=== PATIENT | female | born 1970 | race Caucasian/White ===

== ENCOUNTER → 2017-05-24 | Outpatient (CLI) | payer BC ==
[2017-05-24 11:05] LABS: Basophils % (A) 1 %; CH 29.8; Eosinophils % (A) 1 %; HCT 42.3 % (34.0-46.0); HDW 2.51; HGB 13.9 gm/dL (11.4-16.0); Luc # (Auto) 0.07; Luc % (Auto) 1; Lymphocytes # (A) 1.3 k/uL (1.0-4.8); Lymphocytes % (A) 26 %; MCH 29.8 pg (25.0-35.0); MCHC 32.8 g/dL (31.0-37.0); MCV 90.9 fL (80.0-100.0); Mean Platelet Volume 7.3; Monocytes # (A) 0.2 k/uL (0-1.0); Monocytes % (A) 4 %; Neutrophils # (A) 3.5 k/uL (1.3-7.7); Neutrophils % (A) 67 %; RBC 4.66 m/uL (3.80-5.40); RDW 13.3 % (11.5-15.5); WBC 5.2 k/uL (3.8-10.6); WBC (Perox) 5.05
[2017-05-24 11:24] LABS: ALT 38 U/L (9-52); AST 27 U/L (14-36); Alkaline Phosphatase 85 U/L (38-126); Amylase 50 U/L (30-110); Anion Gap 12 mmol/L; Blood Urea Nitrogen 13 mg/dL (7-17); Calcium 9.7 mg/dL (8.4-10.2); Carbon Dioxide 27 mmol/L (22-30); Chloride 102 mmol/L (98-107); Cholesterol 189 mg/dL (<200); Glucose 100 mg/dL (74-99); HDL Cholesterol 66 mg/dL (40-60); Non-African American GFR(MDRD) >60 (>60 ml/min/1.73 sqM); Potassium 4.2 mmol/L (3.5-5.1); Sodium 141 mmol/L (137-145); Total Bilirubin 0.7 mg/dL (0.2-1.3); Total Protein 7.3 g/dL (6.3-8.2)
[2017-05-24 17:49] LABS: Gliadin AB IgA, Deaminated NEGATIVE (NEGATIVE); Gliadin AB IgG, Deaminated NEGATIVE (NEGATIVE); Gliadin AB IgG, Unit <0.4 U/mL; Tis Transglutaminase IgA Unit <0.5 AI; Tis Transglutaminase IgG Unit <0.8 U/mL
== END | disposition home or self-care (01) ==
LOC: LABWHC1 10:35
PROVIDERS: ATTEND Family Medicine
DX: Z00.00 Encounter for general adult medical examination without abnormal findings (principal); K58.0 Irritable bowel syndrome with diarrhea
CPT/HCPCS: 36415; 80053; 80061; 82150; 82306; 83036; 83516; 83690; 84443; 85025; 87086

== ENCOUNTER → 2018-12-19 | Outpatient (CLI) | payer BC ==
[2018-12-19 12:24] LABS: HCT 41.3 % (34.0-46.0); HGB 13.6 gm/dL (11.4-16.0); MCH 30.1 pg (25.0-35.0); MCHC 32.9 g/dL (31.0-37.0); MCV 91.4 fL (80.0-100.0); Mean Platelet Volume 7.1; Platelet Count 240 k/uL (150-450); RBC 4.53 m/uL (3.80-5.40); RDW 13.8 % (11.5-15.5); WBC 4.3 k/uL (3.8-10.6)
[2018-12-19 13:12] LABS: Appearance,Urine Clear (Clear); Bacteria,Urine Rare /hpf; Bilirubin,Urine Negative (Negative); Blood,Urine Negative (Negative); Color,Urine Yellow; Glucose,Urine (UA) Negative (Negative); Ketones,Urine Negative (Negative); Leukocyte Esterase,Urine Moderate (Negative); Mucus,Urine Occasional /hpf; Nitrite,Urine Negative (Negative); PH, Urine 5.5 (5.0-8.0); Protein,Urine Negative (Negative); RBC,Urine 2 /hpf (0-5); Specific Gravity,Urine 1.015 (1.001-1.035); Squamous Epithelial Cell,Urine 2 /hpf (0-4); Urobilinogen,Urine <2.0 mg/dL (<2.0); WBC,Urine 2 /hpf (0-5)
[2018-12-19 17:06] LABS: African American GFR (CKD) 102.5 (60.0-200.0); Albumin 4.6 g/dL (3.80-4.90); Albumin/Globulin Ratio 2.09 (1.60-3.17); Anion Gap 8.8 mmol/L (4.00-12.00); BUN/Creat Ratio 13.75 Ratio (12.00-20.00); Calcium 9.8 mg/dL (8.7-10.3); Carbon Dioxide 25.2 mmol/L (21.6-31.8); Globulin 2.2 g/dL (1.6-3.3); LDL Cholesterol,Calculated 134.2 mg/dL (0.0-131.0); Potassium 4.3 mmol/L (3.5-5.5); Total Bilirubin 0.8 mg/dL (0.3-1.2); Total Protein 6.8 g/dL (6.2-8.2); VLDL Calculation 15.8 mg/dL (5.00-40.00)
[2018-12-19 22:44] LABS: Hemoglobin A1C 4.9 % (4.0-6.0)
== END | disposition home or self-care (01) ==
LOC: LABWHC1 11:52
PROVIDERS: ATTEND Family Medicine
DX: Z00.00 Encounter for general adult medical examination without abnormal findings (principal); E66.3 Overweight
CPT/HCPCS: 36415; 80053; 80061; 81001; 82306; 83036; 84443; 85027

== ENCOUNTER → 2019-01-03 | Outpatient (CLI) | payer BC ==
[2019-01-03 10:50] LABS: Appearance,Urine Clear (Clear); Bilirubin,Urine Negative (Negative); Blood,Urine Negative (Negative); Color,Urine Yellow; Glucose,Urine (UA) Negative (Negative); Ketones,Urine Negative (Negative); Leukocyte Esterase,Urine Negative (Negative); Nitrite,Urine Negative (Negative); PH, Urine 5.5 (5.0-8.0); Protein,Urine Negative (Negative); Specific Gravity,Urine 1.024 (1.001-1.035); Urobilinogen,Urine <2.0 mg/dL (<2.0)
== END | disposition home or self-care (01) ==
LOC: LABWHC1 08:49
PROVIDERS: ATTEND Family Medicine
DX: R30.0 Dysuria (principal)
CPT/HCPCS: 81003; 87086

== ENCOUNTER → 2019-03-14 | Outpatient (CLI) | payer MEDICAID ==
--- NOTE | 2019-03-14 11:24 | XR ---
EXAMINATION TYPE: XR chest 2V DATE OF EXAM: 03/14/2019 COMPARISON: NONE HISTORY: Wheezing for months. TECHNIQUE: Frontal and lateral views of the chest are obtained. FINDINGS: There is no focal air space opacity, pleural effusion, or pneumothorax seen. Incidentally noted azygous lobe and fissure. Subtle peribronchial cuffing along the bronchus intermedius. The card iac silhouette size is within normal limits. The osseous structures are intact. IMPRESSION: No acute cardiopulmonary process. Subtle peribronchial cuffing along the bronchus interm edius and be seen in reactive or infectious airway disease such as bronchitis.
== END | disposition home or self-care (01) ==
LOC: RADXRMAIN 10:01
PROVIDERS: ATTEND Nurse Practitioner Family
DX: J98.09 Other diseases of bronchus, not elsewhere classified (principal)
CPT/HCPCS: 71046

== ENCOUNTER → 2019-04-17 | Outpatient (CLI) | payer MEDICAID ==
--- NOTE | 2019-04-18 09:37 | MM ---
Reason for exam: screening (asymptomatic). Last mammogram was performed 3 years and 9 months ago. History: Benign excisional biopsy of the left breast, June 2009. Took hormonal contraceptives beginning at age 20. Physical Findings: A clinical breast exam by your physician is recommended on an annual basis and results should be correlated with mammographic findings. MG 3D Screening Mammo W/Cad Bilateral CC and MLO view(s) were taken. Prior study comparison: July 23, 2015, bilateral MG screening mammo w CAD. May 14, 2014, bilateral MG screening mammo w CAD. Finding: There is a 7 mm equal density (isodense) mass in the upper quadrant, posterior, central position of the right breast. ASSESSMENT: Incomplete: need additional imaging evaluation, BI-RAD 0 RECOMMENDATION: Special view mammogram of the right breast. If lesion persists on supplemental views, image directed ultrasound is recommended. [facility] will attempt to contact patient to return for supplemental views and ultrasound if indicated.
== END | disposition home or self-care (01) ==
LOC: RADMAMWWP 12:50
PROVIDERS: ATTEND Obstetrics & Gynecology
DX: Z12.31 Encounter for screening mammogram for malignant neoplasm of breast (principal)
CPT/HCPCS: 77063; 77067

== ENCOUNTER → 2019-05-01 | Outpatient (CLI) | payer MEDICAID ==
--- NOTE | 2019-05-01 14:30 | MM ---
Reason for exam: additional evaluation requested from abnormal screening. Last mammogram was performed less than 1 month ago. History: Benign excisional biopsy of the left breast, June 2009. Took hormonal contraceptives beginning at age 20. Physical Findings: Nurse Summary: 0.5cm nodule in the right breast at 5 o'clock and a 0.5-1cm nodule in the left breast at 6 o'clock (nurse kp). MG 3D Work Up W/Cad RT CC and MLO view(s) were taken of the right breast. Prior study comparison: April 17, 2019, bilateral MG 3d screening mammo w/cad. July 23, 2015, bilateral MG screening mammo w CAD. There is no discrete abnormality on compression. These results were verbally communicated with the patient and result sheet given to the patient on 05/01/19. ASSESSMENT: Incomplete: need additional imaging evaluation, BI-RAD 0 RECOMMENDATION: Ultrasound of both breasts.
--- NOTE | 2019-05-01 14:32 | USB ---
Reason for exam: additional evaluation requested from abnormal screening. History: Benign excisional biopsy of the left breast, June 2009. Took hormonal contraceptives beginning at age 20. US Breast Workup Limited SARBJIT Right limited breast ultrasound including focal area of concern, retroareolar and axilla demonstrates a 2.9 x 1.5 x 1.2cm lymph node at the axilla. Left limited breast ultrasound including focal area of concern, retroareolar and axilla demonstrates a 1.3 x 1.0 x 0.7cm lymph node at the axilla. These results were verbally communicated with the patient and result sheet given to the patient on 05/01/19. ASSESSMENT: Benign, BI-RAD 2 RECOMMENDATION: Return to routine screening mammogram schedule for both breasts. Manage patient on a clinical basis.
== END | disposition home or self-care (01) ==
LOC: RADMAMWWP 10:16
PROVIDERS: ATTEND Obstetrics & Gynecology
DX: R92.8 Other abnormal and inconclusive findings on diagnostic imaging of breast (principal)
CPT/HCPCS: 77061; 77065

== ENCOUNTER → 2020-03-11 | Outpatient (CLI) | payer MEDICAID ==
--- NOTE | 2020-03-11 13:28 | US ---
EXAMINATION TYPE: US transvaginal DATE OF EXAM: 03/11/2020 COMPARISON: 04/03/2010 CLINICAL HISTORY: N91.0 Primary amenorrhea. irregular menses TECHNIQUE: Transvaginal (TV). Date of LMP: 02/15/2020, EXAM MEASUREMENTS: Uterus: 9.9 x 6.6 x 4.5 cm Endometrial Stripe: 1.5 cm 1. Uterus: Anteverted heterogenous 2. Endometrium: slightly thickened 3. Right Ovary: Obscured by overlying bowel gas 4. Left Ovary: Obscured by overlying bowel gas 5. Bilateral Adnexa: wnl 6. Posterior cul-de-sac: trace amount of fluid seen IMPRESSION: 1. The uterine myometrium is heterogeneous which is a nonspecific finding. However, the endometrial s tripe appears thickened measuring 1.5 cm. It is homogeneous but this should be correlated for endomet rial pathology.
== END | disposition home or self-care (01) ==
LOC: RADUSWWP 12:50
PROVIDERS: ATTEND Obstetrics & Gynecology
DX: N92.0 Excessive and frequent menstruation with regular cycle (principal)
CPT/HCPCS: 76830

== ENCOUNTER → 2020-04-22 | Outpatient (CLI) | payer MEDICAID ==
[2020-04-22 11:08] LABS: Basophils % (A) 1 %; Eosinophils # (A) 0.1 k/uL (0-0.7); Eosinophils % (A) 1 %; HCT 42.7 % (34.0-46.0); HGB 14.1 gm/dL (11.4-16.0); Lymphocytes # (A) 1.3 k/uL (1.0-4.8); Lymphocytes % (A) 24 %; MCH 31.3 pg (25.0-35.0); MCHC 33.1 g/dL (31.0-37.0); MCV 94.5 fL (80.0-100.0); Mean Platelet Volume 8.5; Monocytes # (A) 0.3 k/uL (0-1.0); Monocytes % (A) 5 %; Neutrophils # (A) 3.6 k/uL (1.3-7.7); Neutrophils % (A) 68 %; Platelet Count 260 k/uL (150-450); RBC 4.51 m/uL (3.80-5.40); RDW 12.5 % (11.5-15.5); WBC 5.3 k/uL (3.8-10.6)
== END | disposition home or self-care (01) ==
LOC: LABPAT 10:22
PROVIDERS: ATTEND Obstetrics & Gynecology
DX: Z01.818 Encounter for other preprocedural examination (principal)
CPT/HCPCS: 36415; 85025

== ENCOUNTER 2020-04-29 05:50 | Day surgery (SDC) | payer MEDICAID ==
--- NOTE | 2020-04-26 07:41 | P.HPOB ---
History of Present Illness H&P Date: 04/26/20 Chief Complaint: Menorrhagia. This patient is a pleasant 49-year-old 3 para 3 female who presented to my office with complaints of long-standing menorrhagia requesting endometrial ablation. Ultrasound showed normal uterus and endometrium. Patient I discussed various options for treatment and she wishes to proceed with a trial of endometrial ablation. Review of Systems Menstruation: Reports period heavy Past Medical History Additional Past Medical History / Comment(s): COLON POLYPS. History of Any Multi-Drug Resistant Organisms: None Reported Past Surgical History: Bladder Surgery, Section, Tubal Ligation Additional Past Surgical History / Comment(s): MONARCH BLADDER. Past Anesthesia/Blood Transfusion Reactions: No Reported Reaction, Motion Sickness Past Psychological History: Anxiety Smoking Status: Never smoker Past Alcohol Use History: Occasional Past Drug Use History: None Reported Medications and Allergies Home Medications Medication Instructions Recorded Confirmed Type ALPRAZolam [Xanax] 0.25 mg PO DAILY PRN 10/02/15 10/04/15 History Cetirizine HCl [Zyrtec] 10 mg PO DAILY PRN 10/02/15 10/04/15 History Cholecalciferol [Vitamin D3] 4,000 unit PO DAILY 10/02/15 10/04/15 History Escitalopram [Lexapro] 10 mg PO DAILY 10/02/15 10/04/15 History Ibuprofen [Motrin] 200 mg PO DAILY 10/02/15 10/04/15 History Multivitamins, Thera [Multivitamin] 1 tab PO DAILY 10/02/15 10/04/15 History Allergies Allergy/AdvReac Type Severity Reaction Status Date / Time No Known Allergies Allergy Verified 10/04/15 08:05 Exam - OBG Physical Exam Abdomen: bowel sounds normal, no diffuse tenderness, no bruit present, no guarding noted, no hepatomegaly, no splenomegaly, no mass Vulva: both: normal Vagina: normal moisture, no discharge Cervix: no lesion, no discharge Uterus: normal size, normal contour Results Ultrasound on March 11 did not show any defects or abnormalities. Assessment and Plan Assessment: This is a pleasant 49-year-old 3 para 3 female with long-standing menorrhagia requesting endometrial ablation for treatment. Plan is hysteroscopy, dilation and curettage, and NovaSure endometrial ablation. Patient I discussed the surgery in detail including the risks of infection, bleeding, possible uterine perforation, and/or thermal injury. All the patient's questions have been answered and a written consent is obtained. (1) Menorrhagia Status: Chronic Code(s): N92.0 - EXCESSIVE AND FREQUENT MENSTRUATION WITH REGULAR CYCLE SNOMED Code(s): 321035782
[2020-04-26 09:01] VITALS: BMI 26.9
[~2020-04-29 05:50] MED LIST: Pre Op ABX Message 1 EACH MISC MISCELLANE ONE
[2020-04-29] MEDS ORDERED: LACTATED RINGERS 1,000 ML IV SCH (05:53)
[2020-04-29] MEDS ORDERED: DEXAMETHASONE SOD PHOSPHATE 4 MG/ML 1 ML VIAL IV ONE (05:53)
[2020-04-29] MEDS ORDERED: ONDANSETRON 4 MG/2 ML VIAL IVP ONE (05:53)
[2020-04-29] MEDS ORDERED: SCOPOLAMINE 1.5MG/72HR PATCH TRANSDERM ONE (06:19)
[2020-04-29] MEDS ORDERED: LACTATED RINGERS 1,000 ML IV ONE (06:19)
[2020-04-29] MEDS ORDERED: fentaNYL (PF) 50 MCG/ML 2 ML AMP ONE (06:48)
[2020-04-29] MEDS ORDERED: MIDAZOLAM 2 MG/2 ML VIAL ONE (06:48)
[2020-04-29] MEDS ORDERED: LIDOCAINE 1% INJ 10MG/ML (20 ML MDV) ONE (06:48)
[2020-04-29] MEDS ORDERED: KETOROLAC 15 MG/ML 1 ML VIAL ONE (06:48)
[2020-04-29] MEDS ORDERED: PROPOFOL 10 MG/ML 20 ML VIAL IV ONE (06:48)
[2020-04-29] MEDS: HYDROmorphone 0.5 MG/0.5 ML SYRINGE IVP PRN ×5 (07:23→07:32)
[2020-04-29 07:29] VITALS: RESP 16; TEMP 98.5
--- NOTE | 2020-04-29 07:33 | P.OP ---
Date of Procedure: 04/29/20 Preoperative Diagnosis: Menorrhagia Postoperative Diagnosis: Same Procedure(s) Performed: #1: Hysteroscopy. #2: Dilation and curettage. #3: NovaSure endometrial ablation Anesthesia: other (LMA) Surgeon: Ottoniel Moore Estimated Blood Loss (ml): 10 Urine output (ml): 25 Pathology: other Condition: stable Disposition: PACU Indications for Procedure: Please see dictated H&P for intimate details of this patient's admission. In brief summary this is a pleasant 49-year-old 3 para 3 female with long- standing menorrhagia who presents for endometrial ablation for treatment. Patient understands this surgery and risks including risks of infection, bleeding, possible uterine perforation, and/or thermal injury. All the patient's questions are answered written consent obtained. Operative Findings: This patient normal appearing endometrial cavity Description of Procedure: This patient is taken to the operating room where she is laid in the supine position. She subsequently undergoes general anesthesia (LMA) without incident. With an adequate level of anesthesia she's placed in dorsal lithotomy position. His vaginal perineal prep and drape. Examination under anesthesia shows a mid position uterus. I then drained the bladder for 25 mL of clear urine. A weighted speculum was placed in the posterior vagina. The anterior lip of the cervix was grabbed with an Allis clamp. The sound the uterus to 9 cm. The endocervix is then gently dilated to allow the hysteroscope easily into the uterine cavity. Using saline solution hysteroscopy is performed and the uterine cavity appears normal. Measured length is 6 cm. I then removed the hysteroscope. Using a small curette I do a thorough but gentle 4 quadrant curettage. With this done the NovaSure device opened and set at a length of 6.0 cm. It is seated in place the NovaSure device is then seated in place and opens up to a width of 3.7 cm. After passing the cavity integrity test, it is then enabled for 90 seconds. The NovaSure device is then removed intact. Hysteroscopy is performed again and the endometrial cavity appears to be completely ablated up to the endocervix. With this completed the procedure is ended. Weighted speculum and Allis clamp was removed. All counts are correct 3. There are no complications. Patient is awakened from anesthesia and taken recovery room satisfactory condition.
[2020-04-29] MEDS ORDERED: IBUPROFEN 200 MG TAB PO ONE (08:03)
[2020-04-29 08:27] VITALS: BP 113/68; PULSE 74
== END 2020-04-29 08:46 | disposition home or self-care (01) ==
LOC: OR 05:50
PROVIDERS: ATTEND Obstetrics & Gynecology
DX: N92.0 Excessive and frequent menstruation with regular cycle (principal); F41.9 Anxiety disorder, unspecified; Z79.899 Other long term (current) drug therapy; Z98.51 Tubal ligation status; Z98.891 History of uterine scar from previous surgery; Z86.010 Personal history of colon polyps; Z98.890 Other specified postprocedural states
CPT/HCPCS: 81025; 88305; 58563; J2250; J1100; J2405; J2001; J3010; J1885; J2704; J1170

== ENCOUNTER → 2021-02-17 | Outpatient (CLI) | payer OTHER ==
--- NOTE | 2021-02-18 13:42 | MM ---
Reason for exam: screening (asymptomatic). Last mammogram was performed 1 year and 10 months ago. History: Benign excisional biopsy of the left breast, June 2009. Took hormonal contraceptives beginning at age 20. Physical Findings: A clinical breast exam by your physician is recommended on an annual basis and results should be correlated with mammographic findings. MG 3D Screening Mammo W/Cad Bilateral CC and MLO view(s) were taken. Prior study comparison: April 17, 2019, bilateral MG 3d screening mammo w/cad. July 23, 2015, bilateral MG screening mammo w CAD. The breast tissue is heterogeneously dense. This may lower the sensitivity of mammography. No significant changes when compared with prior studies. ASSESSMENT: Negative, BI-RAD 1 RECOMMENDATION: Routine screening mammogram of both breasts in 1 year.
== END | disposition home or self-care (01) ==
LOC: RADMAMWWP 10:15
PROVIDERS: ATTEND Obstetrics & Gynecology
DX: Z12.31 Encounter for screening mammogram for malignant neoplasm of breast (principal)
CPT/HCPCS: 77063; 77067

== ENCOUNTER 2021-04-11 06:11 | Day surgery (SDC) | payer OTHER ==
[2021-04-08 14:55] VITALS: BMI 26.5
[~2021-04-11 06:11] MED LIST changes: +LACTATED RINGERS 1,000 ML IV SCH; +LIDOCAINE 1% (10MG/ML) FOR IV START INTRADERMA PRN; -Pre Op ABX Message 1 EACH MISC MISCELLANE ONE
[2021-04-11 06:47] VITALS: TEMP 96.5
[2021-04-11] MEDS ORDERED: PROPOFOL 10 MG/ML 20 ML VIAL IV ONE (07:00)
--- NOTE | 2021-04-11 07:27 | P.PCN ---
Date of Procedure: 04/11/21 Procedure(s) Performed: BRIEF HISTORY: Patient is a 50-year-old pleasant white female scheduled for an elective colonoscopy as a part ofr history of colon polyps. Her last coloscopy was 5 years ago. She also has strong family history of colon cancer diagnosed in her mother as well as her maternal grandfather in his 60s and 70s suspect daily. PROCEDURE PERFORMED: Colonoscopy biopsy . PREOPERATIVE DIAGNOSIS: History of colon polyps and family history of colon cancer. IV sedation per Anesthesia. PROCEDURE: After informed consent was obtained, the patient, was brought into the endoscopy unit. IV sedation was administered by Anesthesia under continuous monitoring. Digital rectal examination was normal. Initially the Olympus CF-160 flexible video colonoscope was then inserted in the rectum, gradually advanced into the cecum without any difficulty. Careful examination was performed as the scope was gradually being withdrawn. Ileocecal valve and the appendiceal orifice were visualized and appeared normal. Prep was excellent. Mucosa of the cecum and a 5 mm sessile polyp that was removed by cold biopsy. In the transverse colon there was another 5 mm sessile polyp that was removed by cold biopsy. Rest of the ascending colon, transverse colon, descending colon, sigmoid colon, and rectum appeared normal. at her sigmoid diverticulosis seen. Retroflexion was performed in the rectum and no lesions were seen. The patient tolerated the procedure well. IMPRESSION: 5 mm cecal polyp status post biopsy 5 mm transverse colon polyp status post cold biopsy Scattered sigmoid diverticulosis RECOMMENDATIONS: Findings of this examination were discussed with the patient as well as a family. She was advised to follow with the biopsy results and have a repeat colonoscopy in 5 years because of the strong family history of colon cancer..
[2021-04-11 07:44] VITALS: BP 110/78; PULSE 78; RESP 18
== END 2021-04-11 08:17 | disposition home or self-care (01) ==
LOC: ORWHC2ENDO 06:11
PROVIDERS: ATTEND Internal Medicine Gastroenterology
DX: K57.30 Diverticulosis of large intestine without perforation or abscess without bleeding (principal); D12.3 Benign neoplasm of transverse colon; Z98.890 Other specified postprocedural states; Z80.0 Family history of malignant neoplasm of digestive organs
CPT/HCPCS: 45380; 81025; 88305; J2704

== ENCOUNTER → 2021-10-10 | Outpatient (CLI) | payer BC ==
[2021-10-10 14:53] LABS: ALT 23 U/L (8-44); AST 32 U/L (13-35); African American GFR (CKD) 100.3 (60.0-200.0); Albumin 4.1 g/dL (3.8-4.9); Albumin/Globulin Ratio 1.86 (1.60-3.17); Alkaline Phosphatase 69 U/L (41-126); BUN/Creat Ratio 13.25 Ratio (12.00-20.00); Blood Urea Nitrogen 10.6 mg/dL (9.0-27.0); Calcium 8.8 mg/dL (8.7-10.3); Carbon Dioxide 25.4 mmol/L (20.0-27.5); Chloride 105 mmol/L (96-109); Globulin 2.2 g/dL (1.6-3.3); Glucose 99 mg/dL (70-110); LDL Cholesterol,Calculated 113.9 mg/dL (0.0-131.0); Non-African American GFR(CKD) 86.6 (60.0-200.0); Potassium 4.2 mmol/L (3.5-5.5); Sodium 141 mmol/L (135-145); Total Protein 6.3 g/dL (6.2-8.2); VLDL Calculation 14.48 mg/dL (5.00-40.00)
[2021-10-10 19:11] LABS: HCT 44.2 % (37.2-46.3); HGB 14.2 g/dL (12.0-15.0); MCH 30.5 pg (27.0-32.0); MCHC 32.1 g/dL (32.0-37.0); MCV 94.8 fL (80.0-97.0); Mean Platelet Volume 10.4 fL (9.5-12.2); NRBC Per 100 WBC 0 /100 WBCS (0.0-0.0); Platelet Count 233 X 10*3/uL (140-440); RBC 4.66 X 10*6/uL (4.10-5.20); RDW 12.7 % (11.5-14.5); WBC 6.24 X 10*3/uL (4.50-10.00)
[2021-10-10 20:53] LABS: Appearance,Urine Cloudy (Clear); Bilirubin,Urine Negative (Negative); Blood,Urine Trace (Negative); Color,Urine Yellow (Yellow); Ketones,Urine Negative (Negative); Nitrite,Urine Positive (Negative); PH, Urine 5.5 (5.0-8.0); Specific Gravity,Urine 1.017 (1.001-1.030); Urobilinogen,Urine 0.2 (0.2,1.0)
[2021-10-10 20:54] LABS: Bacteria,Urine 3+ /HPF (None Seen)
== END | disposition home or self-care (01) ==
LOC: LABWHC1 07:30
PROVIDERS: ATTEND Family Medicine
DX: Z00.00 Encounter for general adult medical examination without abnormal findings (principal); E66.3 Overweight
CPT/HCPCS: 36415; 80053; 80061; 81001; 82306; 83036; 84443; 85027

== ENCOUNTER → 2023-05-12 | Outpatient (CLI) | payer BC ==
--- NOTE | 2023-05-16 18:04 | MM ---
Reason for Exam: Screening (asymptomatic). Last mammogram was performed 2 year(s) and 3 month(s) ago. Patient History: Menarche at age 16. First Full-Term at age 31. Postmenopausal. Hormonal Contraceptives, from age 20 until age 37. Currently using Estrogen and Progesterone, starting at age 52. 06/2009, Benign Excisional Biopsy on the left side. Risk Values: Evelyn 5 year model risk: 1.2%. NCI Lifetime model risk: 10.6%. Prior Study Comparison: 04/17/2019 Bilateral Screening Mammogram, [facility]. 05/01/2019 Right Diagnostic Mammogram, [facility]. 02/17/2021 Bilateral Screening Mammogram, [facility]. Tissue Density: The breast tissue is heterogeneously dense. This may lower the sensitivity of mammography. Findings: Analyzed By CAD. Unchanged asymmetric density lateral right CC view. There is no suspicious group of microcalcifications or new suspicious mass in either breast. Overall Assessment: Benign, BI-RAD 2 Management: Screening Mammogram of both breasts in 1 year. . Patient should continue monthly self-breast exams. A clinical breast exam by your physician is recommended on an annual basis. This exam should not preclude additional follow-up of suspicious palpable abnormalities. Note on Evelyn scores and lifetime risk: 1. A Evelyn score greater than 3% is considered moderate risk. If this is the case, consider specialist referral to assess eligibility for a risk reducing agent. 2. If overall lifetime risk for the development of breast cancer is 20% or higher, the patient may qualify for future screening with alternating mammogram and breast MRI. Electronically signed and approved by: Chris Jha M.D. Radiologist
== END | disposition home or self-care (01) ==
LOC: RADMAMWWP 13:11
PROVIDERS: ATTEND Obstetrics & Gynecology
DX: Z12.31 Encounter for screening mammogram for malignant neoplasm of breast (principal); Z78.0 Asymptomatic menopausal state
CPT/HCPCS: 77063; 77067

== ENCOUNTER → 2024-09-11 | Outpatient (CLI) | payer BC ==
--- NOTE | 2024-09-11 12:43 | CA ---
Stress Echo Report Debbie Jaffe Age: 54 Gender: F : 1970 Exam Date: 09/11/2024 09:20 Exam Location: [facility] Ht (in): 60 Wt (lb): 160 Ordering Physician: Neal Agustin DO Referring Physician: Neal Agustin DO Public Speaking Instructor: Julia Gaspar RDCS Technologist Procedure CPT: Indication: I47.10 SUPRAVENTRICULAR TACHYCARDIA, UNSPECIFIED ICD-9 Codes: Rhythm: Patient History: Cardiac Medications: PREMERIN,,,,,, CYCLOBENZAPRIN,,,,,, BENTYL,,,,, Medications in past 24 hours: Contrast: Stress Results Protocol: Michi Total dose(mL): Exercise Duration (min:sec): 6:[address] Depression (mm): Angina Score: Carrillo Score: METS: 7.3 Resting HR: 101 Resting BP: 123 / 68 Peak HR: 156 Peak BP: 171 / 72 Max Predicted HR: 168 93 % Max Predicted HR Target HR: 143 Double Product: [id number] Stress Summary: BP Response: Reason for Termination: Target HR Cardiac Symptoms: NO SYMPTOMS ECG Analysis Resting ECG: Stress ECG: Arrhythmia: Echo Analysis Resting Echo: Peak Echo Analysis: MEASUREMENTS (Male/Female) Normal Values CONCLUSIONS Good exercise tolerance Normal electrocardiogram and echocardiogram in response to exercise Essentially normal stress echocardiogram Dr. Marcos Devries MD (Electronically Signed) Final Date: 11 September 2024 12:41
== END | disposition home or self-care (01) ==
LOC: RADECHMAIN 08:36
PROVIDERS: ATTEND Family Medicine
DX: I47.10 Supraventricular tachycardia, unspecified (principal)
CPT/HCPCS: 93270; 93351

== ENCOUNTER → 2024-09-15 | Outpatient (CLI) | payer BC ==
--- NOTE | 2024-09-15 16:20 | MM ---
Reason for Exam: Screening (asymptomatic). Last mammogram was performed 1 year(s) and 4 month(s) ago. Patient History: Menarche at age 16. First Full-Term at age 31. Postmenopausal. Patient has history of breast feeding. Hormonal Contraceptives, from age 20 until age 37. Currently using Estrogen and Progesterone, starting at age 52. 06/2009, Benign Excisional Biopsy on the left side. Risk Values: Evelyn 5 year model risk: 1.3%. NCI Lifetime model risk: 10.3%. Prior Study Comparison: 07/23/2015 Bilateral Screening Mammogram, [facility]. 04/17/2019 Bilateral Screening Mammogram, [facility]. 05/01/2019 Right Diagnostic Mammogram, [facility]. 02/17/2021 Bilateral Screening Mammogram, [facility]. 05/12/2023 Bilateral MG 3D screening mammo w/cad, [facility]. Tissue Density: The breasts are heterogeneously dense, which may obscure small masses. Findings: Analyzed By CAD. Asymmetric density far posterior inferior left MLO view remains unchanged. There is no suspicious group of microcalcifications or new suspicious mass in either breast. Overall Assessment: Benign, BI-RAD 2 Management: Screening Mammogram of both breasts in 1 year. Patient should continue monthly self-breast exams. A clinical breast exam by your physician is recommended on an annual basis. This exam should not preclude additional follow-up of suspicious palpable abnormalities. Note on Evelyn scores and lifetime risk: 1. A Evelyn score greater than 3% is considered moderate risk. If this is the case, consider specialist referral to assess eligibility for a risk reducing agent. 2. If overall lifetime risk for the development of breast cancer is 20% or higher, the patient may qualify for future screening with alternating mammogram and breast MRI. [facility], , 09/15/2024 4:17 PM. Electronically signed and approved by: Chris Jha M.D. Radiologist
== END | disposition home or self-care (01) ==
LOC: RADMAMWWP 11:15
PROVIDERS: ATTEND Obstetrics & Gynecology
DX: Z12.31 Encounter for screening mammogram for malignant neoplasm of breast (principal); R92.333 Mammographic heterogeneous density, bilateral breasts; Z78.0 Asymptomatic menopausal state; Z92.0 Personal history of contraception
CPT/HCPCS: 77063; 77067